=== PATIENT | female | born 1965 ===

== ENCOUNTER 2018-10-24 10:04 | Emergency (ER) | payer BC ==
[2018-10-24 10:18] VITALS: O2SAT 97
[2018-10-24] MEDS ORDERED: Iohexol 240 (50 ml) PO STA (10:46)
[2018-10-24] MEDS ORDERED: Sodium Chloride 0.9% 1,000 ML IV ONE (10:46)
--- NOTE | 2018-10-24 10:49 | C.PDOC ---
History Of Present Illness 53 year old female presents to the ED for evaluation of left-sided lower abdominal pain which began around 4 days ago. She reports slight nausea. Patient states she is currently menstruating. Otherwise, she denies fever, chills, vomi ting, urinary symptoms and constipation. Time Seen by Provider: 10/24/18 10:18 Chief Complaint (Nursing): Abdominal Pain History Per: Patient History/Exam Limitations: no limitations Onset/Duration Of Symptoms: Days (4) Current Symptoms Are (Timing): Still Present Location Of Pain/Discomfort: LLQ Quality Of Discomfort: "Pain" Associated Symptoms: Nausea. denies: Fever, Chills, Vomiting, Constipation, Urinary Symptoms Additional History Per: Patient Last Menstral Period: current Past Medical History Reviewed: Historical Data, Nursing Documentation, Vital Signs Vital Signs: Last Vital Signs Temp 98.6 F 10/24/18 10:14 Pulse 78 10/24/18 10:14 Resp 19 10/24/18 10:14 BP Pulse Ox 97 10/24/18 10:14 - Medical History PMH: Anemia Surgical History: No Surg Hx Family History: States: Unknown Family Hx - Social History Hx Alcohol Use: No Hx Substance Use: No - Immunization History Hx Tetanus Toxoid Vaccination: No Hx Influenza Vaccination: No Hx Pneumococcal Vaccination: No Review Of Systems Constitutional: Negative for: Fever, Chills Gastrointestinal: Positive for: Nausea, Abdominal Pain (left lower quadrant ). Negative for: Vomiting, Constipation Genitourinary: Negative for: Dysuria, Frequency, Hematuria Physical Exam - Physical Exam Appears: Non-toxic, No Acute Distress Skin: Normal Color, Warm, Dry Head: Atraumatic, Normacephalic Eye(s): bilateral: Normal Inspection Oral Mucosa: Moist Neck: Supple Chest: Symmetrical, No Deformity, No Tenderness Cardiovascular: Rhythm Regular, No Murmur Respiratory: Normal Breath Sounds, No Rales, No Rhonchi, No Wheezing Gastrointestinal/Abdominal: Soft, Tenderness (left lower quadrant ), No Guarding, No Rebound Extremity: Normal ROM, Capillary Refill (less than 2 seconds ) Neurological/Psych: Oriented x3, Normal Speech, Normal Cognition ED Course And Treatment - Laboratory Results Result Diagrams: 10/24/18 10:30 10/24/18 10:30 Lab Interpretation: No Acute Changes O2 Sat by Pulse Oximetry: 97 (on RA) Pulse Ox Interpretation: Normal - CT Scan/US No standard instances Other Rad Studies (CT/US): Read By Radiologist, Radiology Report Reviewed CT/US Interpretation: FINDINGS: LOWER THORAX: No visible consolidation, pleural effusion, or pneumothorax. Small hiatal hernia/distal esophageal wall thickening. LIVER: Unremarkable. GALLBLADDER AND BILE DUCTS: Unremarkable. PANCREAS: Unremarkable. SPLEEN: Unremarkable. ADRENALS: Unremarkable. KIDNEYS AND URETERS: The kidneys enhance symmetrically. No hydronephrosis or obstructing renal calculus. BLADDER: The urinary bladder appears unremarkable. REPRODUCTIVE: Uterus is present. Probable 2.2 cm uterine fibroid. APPENDIX: The appendix appears within normal limits of caliber. No secondary signs of acute appendicitis. BOWEL: The stomach is nondistended. The bowel loops appear within normal limits of caliber without evidence of intestinal obstruction. PERITONEUM: No significant free fluid. No definite free air. LYMPH NODES: No bulky lymphadenopathy identified. VASCULATURE: No aortic aneurysm. No atherosclerotic calcification or mural plaque present. BONES: Lucent rounded foci within the left femoral head. Degenerative changes of the spine. OTHER FINDINGS: None. IMPRESSION: Small hiatal hernia/distal esophageal wall thickening. Probable 2.2 cm uterine fibroid. Pelvic ultrasound may be considered for further evaluation if indicated. Progress Note: Bloodwork and urinalysis ordered. CT A/P ordered. IV Fluids given. On re-evaluation lungs clear, abdomen soft Reassessment Condition: Improved Disposition Counseled Patient/Family Regarding: Studies Performed, Diagnosis, Need For Followup, Rx Given - Disposition Referrals: [facility] [Outside] [facility] [Outside] Disposition: HOME/ ROUTINE Disposition Time: 15:25 Condition: STABLE Additional Instructions: Follow up with your CRISIS WORKER for further evaluation Return to ED nif any increase symptoms Prescriptions: Nitrofurantoin Macrocrystals [Macrobid] 1 cap PO BID #14 cap Instructions: Urinary Tract Infections in Adults, Uterine Fibroids Forms: [facility] (Welsh), General Discharge Instructions Print Language: LAO - POA Present On Arrival: None - Clinical Impression Clinical Impression: Abdominal pain, Fibroid uterus - 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 - Scribe Statement The provider has reviewed the documentation as recorded by the Scribe (Eden Noonan) All medical record entries made by the Scribe were at my direction and personally dictated by me. I have reviewed the chart and agree that the record accurately reflects my personal performance of the history, physical exam, medical decision making, and the department course for this patient. I have also personally directed, reviewed, and agree with the discharge instructions and disposition.
[2018-10-24] MEDS ORDERED: Sodium Chloride 0.9% 1,000 ML ONE (11:06)
[2018-10-24] MEDS ORDERED: Iohexol 240 (50 ml) ONE (11:06)
[2018-10-24 11:26] LABS: BASO % 0.3 % (0.0-2.0); EOS # 0.2 K/uL (0.0-0.7); EOS % 1.4 % (0.0-4.0); HEMOGLOBIN 12.5 g/dL (11.0-16.0); LYMPH # 1.3 K/uL (1.0-4.3); LYMPH % 9.9 % (20.0-40.0); MEAN CELL VOLUME 91.6 fL (81.0-99.0); MEAN CORPUSCULAR HEMOGLOBIN 29.5 pg (27.0-31.0); MEAN CORPUSCULAR HGB CONC 32.2 g/dL (33.0-37.0); MEAN PLATELET VOLUME 8.9 fL (7.2-11.7); MONO # 0.5 K/uL (0.0-0.8); MONO % 3.8 % (0.0-10.0); NEUT # 11.5 K/uL (1.8-7.0); NEUT % 84.6 % (50.0-75.0); PLATELET COUNT 437 K/uL (130-400); RBC 4.22 Mil/uL (3.80-5.20); RED CELL DISTRIBUTION WIDTH 14.6 % (11.5-14.5); WHITE BLOOD COUNT 13.6 K/uL (4.8-10.8)
[2018-10-24 11:28] LABS: HCG,QUALITATIVE URINE NEGATIVE (NEGATIVE)
[2018-10-24 11:41] LABS: SQUAMOUS EPITHIAL 2 /hpf (0-5); URINE BACTERIA OCC (<OCC); URINE BILIRUBIN NEGATIVE (NEGATIVE); URINE BLOOD 3+ (NEGATIVE); URINE CLARITY Hazy (Clear); URINE COLOR Amber (YELLOW); URINE GLUCOSE (UA) 2+ mg/dL (Normal); URINE LEUKOCYTE ESTERASE TRACE Leu/uL (Negative); URINE PROTEIN 1+ mg/dL (NEGATIVE); URINE UROBILINOGEN NORMAL mg/dL (0.2-1.0)
[2018-10-24 11:49] LABS: ALB/GLOB RATIO 1.2 (1.0-2.1); ALBUMIN 4.5 g/dL (3.5-5.0); ALT/SGPT 29 U/L (9-52); AST/SGOT 23 U/L (14-36); BLOOD UREA NITROGEN 13 mg/dL (7-17); CALCIUM 9.9 mg/dl (8.6-10.4); GFR NON-AFRICAN AMERICAN > 60; LIPASE 82 U/L (23-300)
[2018-10-24 11:59] LABS: LYMPHOCYTE 10 % (20-40); MONOCYTE 3 % (0-10); NEUTROPHIL 87 % (50-75); TOTAL CELLS COUNTED 100
[2018-10-24 12:00] LABS: PLATELET ESTIMATE NORMAL (NORMAL)
[2018-10-24] MEDS ORDERED: Iodixanol 320 MG/ML 100 ML BOTTLE IV ONE (13:01)
--- NOTE | 2018-10-24 13:43 | CT ---
PROCEDURE: CT Abdomen and Pelvis with oral and IV contrast. HISTORY: pain COMPARISON: None available. TECHNIQUE: Contiguous axial images of the abdomen and pelvis. Oral and IV contrast was administered. Coronal and Sagittal reformats generated and reviewed. Contrast dose: Radiation dose: Total exam DLP = 527.82 mGy-cm. This CT exam was performed using one or more of the following dose reduction techniques: Automated exposure control, adjustment of the mA and/or kV according to patient size, and/or use of iterative reconstruction technique. FINDINGS: LOWER THORAX: No visible consolidation, pleural effusion, or pneumothorax. Small hiatal hernia/distal esophageal wall thickening. LIVER: Unremarkable. GALLBLADDER AND BILE DUCTS: Unremarkable. PANCREAS: Unremarkable. SPLEEN: Unremarkable. ADRENALS: Unremarkable. KIDNEYS AND URETERS: The kidneys enhance symmetrically. No hydronephrosis or obstructing renal calculus. BLADDER: The urinary bladder appears unremarkable. REPRODUCTIVE: Uterus is present. Probable 2.2 cm uterine fibroid. APPENDIX: The appendix appears within normal limits of caliber. No secondary signs of acute appendicitis. BOWEL: The stomach is nondistended. The bowel loops appear within normal limits of caliber without evidence of intestinal obstruction. PERITONEUM: No significant free fluid. No definite free air. LYMPH NODES: No bulky lymphadenopathy identified. VASCULATURE: No aortic aneurysm. No atherosclerotic calcification or mural plaque present. BONES: Lucent rounded foci within the left femoral head. Degenerative changes of the spine. OTHER FINDINGS: None. IMPRESSION: Small hiatal hernia/distal esophageal wall thickening. Probable 2.2 cm uterine fibroid. Pelvic ultrasound may be considered for further evaluation if indicated. Additional findings as above.
[2018-10-24 14:30] VITALS: BP 128/78; PULSE 84; RESP 20; TEMP 98
== END 2018-10-24 14:29 | disposition home or self-care (01) ==
LOC: C.ER 10:04
DX: D25.9 Leiomyoma of uterus, unspecified (principal); R10.32 Left lower quadrant pain
CPT/HCPCS: 74177; 80053; 81001; 83690; 84703; 85025; 96360; 99285; J7030; Q9966; Q9967